=== PATIENT | female | born 1980 | race Caucasian/White ===

== ENCOUNTER 2016-11-06 01:01 | Emergency (ER) | payer BC, OTHER ==
[~2016-11-06] VITALS: Ht 167.6 cm; Wt 102.9 kg
[2016-11-06] MEDS ORDERED: HYDROcodone/APAP 5/325 TABLET ONE (01:26)
[2016-11-06] MEDS ORDERED: IBUPROFEN 200 MG TABLET ONE (01:27)
[2016-11-06] MEDS ORDERED: HYDROcodone/APAP 5/325 TABLET PO ONE (01:30)
[2016-11-06] MEDS ORDERED: IBUPROFEN 200 MG TABLET PO ONE (01:30)
[2016-11-06] MEDS ORDERED: ALBU8.5H3 INH (01:31)
[2016-11-06 02:27] VITALS: BP 128/85
== END 2016-11-06 02:29 | disposition home or self-care (01) ==
LOC: ED 02:20
DX: S00.83XA Contusion of other part of head, initial encounter (principal); S20.02XA Contusion of left breast, initial encounter; S20.212A Contusion of left front wall of thorax, initial encounter; J45.909 Unspecified asthma, uncomplicated; Y04.8XXA Assault by other bodily force, initial encounter; Y93.89 Activity, other specified; Y99.8 Other external cause status; Y92.009 Unspecified place in unspecified non-institutional (private) residence as the place of occurrence of the external cause
CPT/HCPCS: 71010; 99283

== ENCOUNTER 2017-01-08 00:44 | Emergency (ER) | payer OTHER ==
[~2017-01-08] VITALS: Ht 167.6 cm; Wt 92.0 kg
[~2017-01-08 00:44] MED LIST: ALBU8.5H8 INH
[2017-01-08] MEDS ORDERED: ALBUTEROL/IPRATROPIUM 2.5MG/0.5MG, 3 ML ONE (00:55)
[2017-01-08] MEDS ORDERED: SODIUM CHLORIDE FLUSH 10ML SYR IVF ONE (01:00)
[2017-01-08] MEDS ORDERED: ALBUTEROL/IPRATROPIUM 2.5MG/0.5MG, 3 ML NPPB ONE (01:00)
[2017-01-08] MEDS ORDERED: methylPREDNISolone SOD SUCC 125 MG/2 ML IVP ONE (01:00)
[2017-01-08] MEDS ORDERED: methylPREDNISolone SOD SUCC 125 MG/2 ML ONE (01:12)
[2017-01-08 01:18] LABS: HEMATOCRIT 42.9 % (34.6-47.8); HEMOGLOBIN 14.4 g/dL (11.7-16.4); WHITE BLOOD COUNT 15.3 x10^3/uL (3.4-10)
[2017-01-08 01:27] LABS: BLOOD UREA NITROGEN 15 mg/dL (7-18)
[2017-01-08] MEDS ORDERED: MAGNESIUM SULFATE PMX 2GM/50ML 50 ML IV ONE (02:00)
[2017-01-08] MEDS ORDERED: FLUT1DIS3 INH (02:48)
[2017-01-08 05:00] VITALS: BP 106/59
== END 2017-01-08 05:12 | disposition home or self-care (01) ==
LOC: ED 01:03
DX: J45.40 Moderate persistent asthma, uncomplicated (principal); F41.9 Anxiety disorder, unspecified
CPT/HCPCS: 36415; 71010; 80048; 82040; 85025; 93005; 94640; 96365; 96375; 99285; J2930; J3475; J7620

== ENCOUNTER 2017-01-29 17:33 | Emergency (ER) | payer OTHER ==
[~2017-01-29] VITALS: Ht 167.6 cm; Wt 98.0 kg
[~2017-01-29 17:33] MED LIST changes: +FLUT1DIS3 INH
[2017-01-29] MEDS ORDERED: DIPHENHYDRAMINE 50 MG/ML, 1ML ONE (17:57)
[2017-01-29] MEDS ORDERED: METOCLOPRAMIDE 5 MG/ML, 2ML ONE (17:57)
[2017-01-29] MEDS ORDERED: METOCLOPRAMIDE 5 MG/ML, 2ML IVPush ONE (18:00)
[2017-01-29] MEDS ORDERED: PLEASE ENTER HEIGHT AND WEIGHT MC SCH (18:00)
[2017-01-29] MEDS ORDERED: DIPHENHYDRAMINE 50 MG/ML, 1ML IVPush ONE (18:00)
[2017-01-29] MEDS ORDERED: SODIUM CHLORIDE 0.9% 1,000ML IVBOLUS ONE (18:30)
[2017-01-29 18:36] LABS: PATH.CAST-FLAG NOT PRESENT; SPERM-FLAG NOT PRESENT; SRC-FLAG NOT PRESENT; XTAL-FLAG NOT PRESENT; YLC-FLAG NOT PRESENT
[2017-01-29] MEDS ORDERED: MORPHINE SULFATE 4 MG/ML, 1ML ONE (20:16)
[2017-01-29] MEDS ORDERED: morphine SULFATE 10 MG/ML, 1ML IVPush ONE (20:30)
[2017-01-29 20:44] VITALS: BP 138/83
== END 2017-01-29 20:50 | disposition home or self-care (01) ==
LOC: ED 20:44
DX: O20.0 Threatened abortion (principal); Z3A.10 10 weeks gestation of pregnancy; G43.909 Migraine, unspecified, not intractable, without status migrainosus; O99.511 Diseases of the respiratory system complicating pregnancy, first trimester; J45.909 Unspecified asthma, uncomplicated; R10.2 Pelvic and perineal pain
CPT/HCPCS: 36415; 76801; 81001; 84702; 86901; 96361; 96374; 96375; 99285; J1200; J2270; J2765; J7030

== ENCOUNTER 2017-02-06 23:21 | Emergency (ER) | payer MEDICAID, OTHER ==
[~2017-02-06] VITALS: Ht 167.6 cm; Wt 90.0 kg
[2017-02-07] MEDS ORDERED: ALBUTEROL SULFATE 2.5 MG/3 ML NPPB ONE
[2017-02-07] MEDS ORDERED: ALBUTEROL SULFATE 2.5 MG/3 ML ONE ×2 (00:14)
[2017-02-07 00:44] VITALS: BP 134/78
== END 2017-02-07 00:41 | disposition home or self-care (01) ==
LOC: ED 23:41
DX: J45.31 Mild persistent asthma with (acute) exacerbation (principal)
CPT/HCPCS: 94640; 99284; J7512; 99283; J7613

== ENCOUNTER 2017-04-10 17:28 | Emergency (ER) | payer MEDICAID ==
[~2017-04-10] VITALS: Ht 167.6 cm; Wt 101.2 kg
[2017-04-10] MEDS ORDERED: ALBUTEROL/IPRATROPIUM 2.5MG/0.5MG, 3 ML ONE (17:52)
[2017-04-10] MEDS ORDERED: ALBUTEROL 0.5%, 20ML ONE (17:55)
[2017-04-10] MEDS ORDERED: IPRATROPIUM 0.5 MG/2.5 ML INHA NPPB ONE (18:00)
[2017-04-10] MEDS ORDERED: ALBUTEROL 0.5%, 20ML NPPB SCH (18:00)
[2017-04-10 19:40] VITALS: BP 119/78
== END 2017-04-10 20:06 | disposition home or self-care (01) ==
LOC: ED 20:00
DX: J45.41 Moderate persistent asthma with (acute) exacerbation (principal); J30.9 Allergic rhinitis, unspecified; Z87.891 Personal history of nicotine dependence
CPT/HCPCS: 71010; 94644; 99284; J7512; J7644

== ENCOUNTER 2017-05-15 10:45 | Emergency (ER) | payer MEDICAID ==
[~2017-05-15] VITALS: Ht 167.6 cm; Wt 103.7 kg
[2017-05-15 10:47] VITALS: BP 147/85
[2017-05-15] MEDS ORDERED: FLUORESCEIN OPHTHALMIC 1 MG STRIP ONE (11:12)
[2017-05-15] MEDS ORDERED: PROPARACAINE OPHTH 0.5%, 15ML ONE (11:12)
== END 2017-05-15 12:21 | disposition home or self-care (01) ==
LOC: ED 11:48
DX: B30.9 Viral conjunctivitis, unspecified (principal); J45.909 Unspecified asthma, uncomplicated
CPT/HCPCS: 99283